=== PATIENT | male | born 1950 | race African-American/Black ===

== ENCOUNTER 2021-08-27 09:31 | Outpatient (CLI) | payer MEDICARE, SELFPAY ==
--- NOTE | ~2021-08-27 | US_ITS ---
EXAMINATION: US carotid duplex BI DATE: 08/27/2021 10:34 INDICATION: Left-sided pulsatile tinnitus. Hypertension and hypercholesterolemia. TECHNIQUE: Grayscale, color Doppler, and pulsed Doppler images of the cervical carotid arteries were obtained. The degree of vessel stenosis is placed in one of the following categories: normal, <50%, 5 0-69%, >=70% but less than near-occlusion, near-occlusion, or total occlusion. Note that percent sten osis relative to normal distal artery lumen diameter is indirectly measured from velocity measurement s as described by Bryan, et al. Radiology 2003; [id number]:[id number]. COMPARISON: None. FINDINGS: RIGHT: The right common carotid artery (CCA) peak systolic velocity (PSV) is 81 cm/s. The right internal car otid artery (ICA) PSV is 57 cm/s. The right ICA end-diastolic velocity (EDV) is 25 cm/s. The right IC A/CCA PSV ratio is 0.7. Grayscale and color Doppler images yield an estimate of <50% diameter reducti on from plaque in the ICA. The external carotid artery (ECA) PSV is 55 cm/s. There is antegrade flow in the right vertebral artery. LEFT: The left CCA PSV is 88 cm/s. The left ICA PSV is 54 cm/s. The left ICA EDV is 24 cm/s. The left ICA/C CA PSV ratio is 0.6. Grayscale and color Doppler images yield an estimate of <50% diameter reduction from plaque in the ICA. The ECA PSV is 39 cm/s. There is antegrade flow in the left vertebral artery. IMPRESSION: 1. <50% stenosis in the right internal carotid artery. 2. <50% stenosis in the left internal carotid artery. Reviewed, dictated and finalized at location B.
== END 2021-08-27 09:32 | disposition home or self-care (01) ==
PROVIDERS: PCP Family Medicine; Visit Provider Family Medicine
DX: I65.23 Occlusion and stenosis of bilateral carotid arteries (principal)
CPT/HCPCS: 93880

== ENCOUNTER 2021-09-17 11:05 | Outpatient (CLI) | payer MEDICARE, SELFPAY | END 2021-09-17 11:06 | disposition home or self-care (01) | LOC: ANHAUDIO 11:06 | PROVIDERS: PCP Family Medicine; Referring Provider Family Medicine; Visit Provider Family Medicine | DX: H93.19 Tinnitus, unspecified ear (principal) | CPT/HCPCS: 92557; 92567 ==

== ENCOUNTER 2022-04-07 16:16 | Outpatient (CLI) | payer MEDICARE, SELFPAY ==
--- NOTE | ~2022-04-07 | XR_ITS ---
EXAMINATION: XR chest 2V 04/07/2022 16:36 INDICATION: Cough PROCEDURE: PA and lateral views of the chest COMPARISON: Comparison to multiple prior studies sequentially, with oldest reviewed study dated 01/01. FINDINGS: The lungs are clear. The cardiomediastinal silhouette is mildly enlarged. There are no pl eural effusions. There is no pneumothorax suspected. IMPRESSION: 1: NO ACUTE CARDIOPULMONARY DISEASE. Reviewed, dictated and finalized at location A. 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
== END 2022-04-07 16:17 | disposition home or self-care (01) ==
PROVIDERS: PCP Family Medicine; Visit Provider Physician Assistant
DX: R05.9 Cough, unspecified (principal)
CPT/HCPCS: 71046

== ENCOUNTER 2022-05-20 10:15 | Outpatient (CLI) | payer MEDICARE, SELFPAY ==
--- NOTE | ~2022-05-20 | CT_ITS ---
Clinical Indication: Cough, wheezing CT Scan of the Chest with Contrast: Technique: Contiguous sections were acquired throughout the chest after intravenous administration of 75 cc of Omnipaque 350. Dose reduction technique was used on this scan by utilizing automated exposu re control and iterative reconstruction technique. The dose-length product (DLP) was 602.33 mGy-cm. Findings: There is no evidence of any significant mediastinal, hilar or axillary lymphadenopathy. There is no f illing defect in the pulmonary arterial tree to suggest pulmonary embolus. There is no evidence of ao rtic dissection or aneurysm. There is no evidence of pleural or pericardial effusion. The lungs are clear. No pulmonary nodules or infiltrates are noted. Images through the upper abdomen reveal no abnormalities. Impression: No evidence of pulmonary embolus, aortic dissection, or aortic aneurysm. Clear lungs. Reviewed, dictated and finalized at [facility]. BITIONS CURATOR Impression: No evidence of pulmonary embolus, aortic dissection, or aortic aneurysm. Clear lungs.
[2022-05-20 10:48] LABS: Estimated Glomerular Filt Rate > 60
== END 2022-05-20 10:16 | disposition home or self-care (01) ==
PROVIDERS: PCP Family Medicine; Visit Provider Physician Assistant
DX: R05.9 Cough, unspecified (principal); R06.2 Wheezing
CPT/HCPCS: 71260; Q9967

== ENCOUNTER 2022-05-28 12:06 | Outpatient (CLI) | payer MEDICARE, SELFPAY ==
--- NOTE | 2022-05-30 07:51 | WPDPFTINT ---
PFT Procedure Performed PFT Procedure Performed Flow Vol Loop Spirometry w/o Bronchodil PFT Interpretation Spirometry showed normal expiratory flow rates and a normal FEV1 to FVC ratio of 81%. No post bronchodilator study carried out. The flow volume loop is unremarkable. Impression: Spirometry within the normal range.
== END 2022-05-28 12:07 | disposition home or self-care (01) ==
PROVIDERS: PCP Family Medicine; Visit Provider Physician Assistant
DX: R05.9 Cough, unspecified (principal); R06.2 Wheezing
CPT/HCPCS: 94375

== ENCOUNTER 2023-04-19 14:04 | Outpatient (CLI) | payer MEDICARE, SELFPAY ==
--- NOTE | ~2023-04-19 | MR_ITS ---
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 TECHNIQUE: Magnetic resonance imaging (MRI) of the lumbar spine was performed without intravenous con trast. Sequences included sagittal T2-weighted FSE, sagittal T2-weighted FS FSE, sagittal T1-weighted FSE, and axial T2-weighted FSE. COMPARISON: MR L-spine 03/03/2018; x-ray L-spine 11/18/2017 FINDINGS: The last fully formed and hydrated disc is designated L5-S1. The marrow signal is benign an d homogenous. Likely bone island in L1. Conus terminates at L2. Multilevel loss of disc height and hy dration, most evident at L4-5. 2 mm anterolisthesis at L4-5. The following disc levels are specifical ly discussed: T11-T12: The disc does not extend beyond the endplate margin. There is mild facet joint osteoarthriti s. There is no neural foraminal stenosis. There is no central canal stenosis. T12-L1: The disc does not extend beyond the endplate margin. There is no facet joint osteoarthritis. There is no neural foraminal stenosis. There is no central canal stenosis. L1-L2: Mild diffuse bulge. There is mild facet joint osteoarthritis. There is no neural foraminal kyra nosis. There is no central canal stenosis. L2-L3: Mild diffuse bulge. Tiny 2 mm extrusion extending superiorly. There is moderate facet joint os teoarthritis. There is mild bilateral neural foraminal stenosis. There is mild central canal stenosis . L3-L4: Mild diffuse bulge. There is moderate facet joint osteoarthritis. There is mild bilateral neur al foraminal stenosis. Anteriorly directed 6 mm right synovial cyst. There is mild central canal sten osis. L4-L5: Moderate diffuse bulge with an annular fissure. There is severe facet joint osteoarthritis. Th ere is moderate bilateral neural foraminal stenosis. There is moderate central canal stenosis. L5-S1: Mild diffuse bulge. There is mild facet joint osteoarthritis. There is no neural foraminal kyra nosis. There is no central canal stenosis. IMPRESSION: Stable grade 1 anterolisthesis at L4-5. New 6 mm anteriorly directed right facet synovial cyst and mild central canal narrowing at L3-4. Moderate degenerative disc disease at L4-5, with moderate right and severe left facet arthropathy, mo derate bilateral neural foraminal narrowing, and moderate central canal stenosis, all stable. Lesser degrees of degenerative disc disease, neural foraminal narrowing, and canal narrowing present at multiple levels, described in detail above. Reviewed, dictated and finalized at location K. T CHANGER IMPRESSION: Stable grade 1 anterolisthesis at L4-5. New 6 mm anteriorly directed right facet synovial cyst and mild central canal n arrowing at L3-4. Moderate degenerative disc disease at L4-5, with moderate right and severe left facet arthropathy, moderate bilateral neural foraminal narrowing, and moderate central canal stenosis, all stable. Lesser degrees of degenerative disc disease, neural foraminal narrowing, and ca nal narrowing present at multiple levels, described in detail above.
== END 2023-04-19 14:05 | disposition home or self-care (01) ==
PROVIDERS: PCP Family Medicine; Visit Provider Physician Assistant
DX: M43.06 Spondylolysis, lumbar region (principal); M71.38 Other bursal cyst, other site; M48.061 Spinal stenosis, lumbar region without neurogenic claudication; M51.36 Other intervertebral disc degeneration, lumbar region
CPT/HCPCS: 72148